=== PATIENT | male | born 1995 | race Caucasian/White ===

== ENCOUNTER 2019-02-07 16:08 | Emergency (ER) | payer SELFPAY | END 2019-02-07 17:15 | disposition left against medical advice (07) | LOC: ED 16:08 | DX: Z53.9 Procedure and treatment not carried out, unspecified reason (principal) ==

== ENCOUNTER 2019-03-08 13:28 | Emergency (ER) | payer SELFPAY ==
--- NOTE | 2019-03-08 14:58 | ERPHSYRPT ---
- History of Present Illness Time Seen by Provider: 03/08/19 14:48 Source: patient Exam Limitations: no limitations Patient Subjective Stated Complaint: pt reports sore throat x 3 days. reports pain with swallowing. states he has intermittent fever as well. pt reports aching to the joints. Triage Nursing Assessment: pt aox3, pupils perrl, low grade fever of 100.8, resps easy and non labored, cap refill < 3 seconds, pt skin pink warm dry. redness, exudate noted to bilat throat. Physician History: This is a 23-year-old white male with history of asthma arrives with complaint of a sore throat for 3 days she states she's also been having pain with swallowing and a cough. Past medical history includes asthma. Past surgical history is negative. Social history positive tobacco positive marijuana. . Timing/Duration: day(s) Severity: moderate (3 days) Modifying Factors: Improves With: nothing Associated Symptoms: cough, fever, other (throat pain), No nausea, No vomiting, No abdominal pain, No shortness of breath, No heartburn, No diaphoresis, No chills, No chest pain, No headaches, No loss of appetite, No malaise, No rash, No syncope, No seizure, No weakness Allergies/Adverse Reactions: No Known Drug Allergies Allergy (Unverified 03/08/19 14:08) Hx Tetanus, Diphtheria Vaccination/Date Given: No Hx Influenza Vaccination/Date Given: No Hx Pneumococcal Vaccination/Date Given: No Immunizations Up to Date: Yes - Review of Systems Constitutional: Fever, No Chills, No Fatigue, No Lethargy, No Malaise, No Night Sweats, No Weakness, No Weight Loss, No Other Eyes: No Symptoms Ears, Nose, & Throat: Throat Pain, No Ear Pain, No Ear Discharge, No Hearing Changes, No Tinnitus, No Nose Pain, No Nose Congestion, No Nose Discharge, No Sinus Drainage, No Epistaxis, No Mouth Pain, No Mouth Swelling, No Loose Teeth, No Throat Swelling, No Hoarse, No Painful Swallowing, No Snoring, No Stridor Respiratory: Cough, No Cyanosis, No Dyspnea, No Dyspnea on Exertion (JOLLY), No Stridor, No Wheezing Cardiac: No Chest Pain, No Edema, No Syncope Abdominal/Gastrointestinal: No Abdominal Pain, No Nausea, No Vomiting, No Diarrhea Genitourinary Symptoms: No Dysuria Musculoskeletal: No Back Pain, No Neck Pain Skin: No Rash Neurological: No Dizziness, No Focal Weakness, No Sensory Changes Psychological: No Symptoms Endocrine: No Symptoms All Other Systems: Reviewed and Negative - Past Medical History Pertinent Past Medical History: Yes Respiratory History: Asthma - Past Surgical History Past Surgical History: No - Social History Smoking Status: Current every day smoker Drug Use: marijuana Patient Lives Alone: No - Nursing Vital Signs Nursing Vital Signs: Initial Vital Signs Temperature 100.8 F 03/08/19 13:58 Pulse Rate 95 H 03/08/19 13:58 Respiratory Rate 20 03/08/19 13:58 Blood Pressure 128/73 03/08/19 13:58 O2 Sat by Pulse Oximetry 99 03/08/19 13:58 Pain Scale Pain Intensity 8 - Physical Exam General Appearance: mild distress, alert Eye Exam: PERRL/EOMI, eyes nml inspection Ears, Nose, Throat Exam: TMs normal, moist mucous membranes, pharyngeal erythema , No pharynx normal (throat erythematous), No dry mucous membranes, No TM abnormal (R), No TM abnormal (L) Neck Exam: normal inspection, non-tender, supple, full range of motion Respiratory Exam: airway intact, wheezing (few rare wheezes) Cardiovascular Exam: regular rate/rhythm, normal heart sounds, normal peripheral pulses, capillary refill <2 sec Gastrointestinal/Abdomen Exam: soft, normal bowel sounds, No tenderness, No mass Back Exam: normal inspection, normal range of motion, No CVA tenderness, No vertebral tenderness Extremity Exam: normal inspection, normal range of motion, pelvis stable Neurologic Exam: alert, oriented x 3, cooperative, grant writer II-XII nml as tested, normal mood/affect, nml cerebellar function, nml station & gait, sensation nml, No motor deficits Skin Exam: normal color Lymphatic Exam: No adenopathy SpO2 Interpretation: normal (99%) SpO2: 99 Lab/Rad Data: Laboratory Results 03/08/19 Range/Units 14:17 Group A Strep Antibody NEGATIVE (NEGATIVE) - Progress Progress: improved Progress Note: 03/08/19 14:56 23-year-old white male arrives with complaint of sore throat for 3 days he states he is having pain with swallowing. Patient does have a few scattered rare wheezes. He does have a history of asthma. Patient does smoke. Because of the patient's cough history of asthma will go ahead and place patient on Zithromax despite his negative strep test will also write for [facility] for pain he denies any problems with substance abuse. - Departure Departure Disposition: Home Clinical Impression: Bronchitis Pharyngitis Qualifiers: Pharyngitis/tonsillitis etiology: unspecified etiology Qualified Code(s): J02.9 - Acute pharyngitis, unspecified Condition: Fair Critical Care Time: No Referrals: LUBNA COMBS MD [Primary Care Provider] - Instructions: Sore Throat, Adult (DC) Additional Instructions: Return home. Plenty of fluids. Zithromax as prescribed. Eolia as prescribed. Tylenol every 4 hours as needed for temperature greater than 100.5 do not double up Tylenol in E[place] with Tylenol. Advil every 6 hours as needed for temperature greater than 100.5. Followup with your family Dr. symptoms are worse, no better in 48 hours, or persist longer than one week. Return for acute distress or for severe symptoms. Stop smoking. Prescriptions: Hydrocodone/APAP 5-325 Tab^^^ [Eolia 5-325 Tablet^^^] 1 tab PO Q6HPRN PRN #10 tablet MDD 6 PRN Reason: throat pain Azithromycin 250 mg [Zithromax 250 MG TABLET] 0 mg PO ZPACK #6 tablet
[2019-03-08] MEDS ORDERED: MOTRIN 600 MG PO ONE (14:59)
[2019-03-08] MEDS ORDERED: MOTRIN 600 MG ONE (15:02)
[2019-03-08 15:10] VITALS: BP 114/72; PULSE 70; O2SAT 98
== END 2019-03-08 15:10 | disposition home or self-care (01) ==
LOC: ED 13:28
DX: J40 Bronchitis, not specified as acute or chronic (principal); J02.9 Acute pharyngitis, unspecified
CPT/HCPCS: 87651; 99283; A9270-GY

== ENCOUNTER 2019-04-23 22:09 | Emergency (ER) | payer SELFPAY ==
[2019-04-23 22:47] VITALS: O2SAT 98
[2019-04-23] MEDS ORDERED: Vancomycin 1GM/ Ns 250ML*** 250 ML IV ONE ×2 (23:03→23:18)
--- NOTE | 2019-04-23 23:08 | ERPHSYRPT ---
- History of Present Illness Time Seen by Provider: 04/23/19 22:59 Source: patient Exam Limitations: no limitations Patient Subjective Stated Complaint: pt is alert and oriented. pt is ambulatory with a steady gait. pt comes in with c/o "bug bite" to his left wrist. pt has a swollen, red, and hot to touch area to his left wrist. pt has redness to his anterior wrist and the posterior of his hand. pt states that he was at the ER yesterday and recieved a prescription for Keflex but that he has not picked it up yet. pt states that he did have one dose at the ER. pt states that he has increased redness today and increased warmth. radial pulse strong. no sensation loss. no drainage noted. Triage Nursing Assessment: see above Physician History: 23-year-old white male arrives with complaint of raised area in his right wrist which is erythematous. Symptoms for several days he was seen yesterday at [facility] given an injection of antibiotics and given a prescription for Keflex. He states he did not fill his Keflex he feels like his area on his wrist is worse. Past medical history includes asthma Past surgical history negative Occurred: days ago (2-3 days ago) Method of Injury: other (possible insect bite) Quality: constant Severity of Pain-Max: mild Severity of Pain-Current: mild Extremities Pain Location: wrist: right Modifying Factors: Improves With: nothing Associated Symptoms: other (erythema and raised area right anterior wrist radial aspect) Allergies/Adverse Reactions: No Known Drug Allergies Allergy (Unverified 03/08/19 14:08) Hx Tetanus, Diphtheria Vaccination/Date Given: No Hx Influenza Vaccination/Date Given: No Hx Pneumococcal Vaccination/Date Given: No Immunizations Up to Date: Yes - Review of Systems Constitutional: No Fever, No Chills Eyes: No Symptoms Ears, Nose, & Throat: No Symptoms Respiratory: No Cough, No Dyspnea Cardiac: No Chest Pain, No Edema, No Syncope Abdominal/Gastrointestinal: No Abdominal Pain, No Nausea, No Vomiting, No Diarrhea Genitourinary Symptoms: No Dysuria Musculoskeletal: Other (Raised erythematous area right anterior wrist radial aspect) Skin: Cellulitis (raised erythematous area right anterior wrist radial aspect) Neurological: No Dizziness, No Focal Weakness, No Sensory Changes Psychological: No Symptoms Endocrine: No Symptoms All Other Systems: Reviewed and Negative - Past Medical History Pertinent Past Medical History: Yes Neurological History: No Pertinent History ENT History: No Pertinent History Cardiac History: No Pertinent History Respiratory History: Asthma Endocrine Medical History: No Pertinent History Musculoskeletal History: No Pertinent History GI Medical History: No Pertinent History History: No Pertinent History Psycho-Social History: No Pertinent History Male Reproductive Disorders: No Pertinent History - Past Surgical History Past Surgical History: No - Social History Smoking Status: Current every day smoker How long have you smoked: 10 years Drug Use: marijuana Patient Lives Alone: No - Nursing Vital Signs Nursing Vital Signs: Initial Vital Signs Temperature 98.6 F 04/23/19 22:38 Pulse Rate 82 04/23/19 22:38 Respiratory Rate 18 04/23/19 22:38 Blood Pressure 123/58 04/23/19 22:38 O2 Sat by Pulse Oximetry 98 04/23/19 22:38 Pain Scale Pain Intensity 8 - Physical Exam General Appearance: alert Eyes, Ears, Nose, Throat Exam: moist mucous membranes Neck Exam: non-tender, supple Cardiovascular/Respiratory Exam: chest non-tender, normal breath sounds, regular rate/rhythm, no respiratory distress Abdominal Exam: non-tender, No guarding Back Exam: normal inspection, No vertebral tenderness Shoulder Exam: normal inspection, non-tender, no evidence of injury, normal ROM Elbow/Forearm Exam: normal inspection, non-tender, no evidence of injury, normal ROM Wrist Exam: normal ROM, No normal inspection (right anterior wrist with raised erythematous area with surrounding 8 cm erythema somewhat warm to touch) Neuro/Tendon Exam: normal sensation, normal motor functions Mental Status Exam: alert, oriented x 3, cooperative Skin Exam: warm, dry, other (right anterior wrist radial aspect with raised erythematous area with 8 cm surrounding erythema) SpO2 Interpretation: normal (98%) SpO2: 98 - Course Nursing assessment & vital signs reviewed: Yes Ordered Tests: Active Orders 24 hr Category Date Time Status BLOOD CULTURE Stat Lab 04/23/19 23:37 Received CBC W DIFF Stat Lab 04/23/19 23:37 Completed Medication Summary Generic Name Dose Route Start Last Admin Trade Name Freq PRN Reason Stop Dose Admin Vancomycin HCl 250 mls @ 167 mls/hr 04/23/19 23:03 04/23/19 23:22 Vancomycin 1gm/ Ns 250ml IV 04/24/19 00:32 167 mls/hr STAT ONE Administration Discontinued Medications Generic Name Dose Route Start Last Admin Trade Name Swathi PRN Reason Stop Dose Admin Vancomycin HCl Confirm 04/23/19 23:18 Vancomycin 1gm/ Ns 250ml Administered 04/23/19 23:19 Dose 250 mls @ ud IV .STK-MED ONE Lab/Rad Data: Laboratory Result Diagrams 04/23/19 23:37 Laboratory Results 04/23/19 Range/Units 23:37 WBC 12.4 H (4.0-10.5) K/mm3 RBC 4.55 (4.1-5.6) M/mm3 Hgb 13.7 (12.5-18.0) gm/dl Hct 41.6 L (42-50) % MCV 91.4 (78-100) fl MCH 30.1 (26-32) pg MCHC 32.9 (32-36) g/dl RDW 14.2 H (11.5-14.0) % Plt Count 241 (150-450) K/mm3 MPV 11.1 H (6-9.5) fl Gran % 69.6 H (36.0-66.0) % Eos # (Auto) 0.22 (0-0.5) Absolute Lymphs (auto) 2.57 (1.0-4.6) Absolute Monos (auto) 0.93 (0.0-1.3) Lymphocytes % 20.8 L (24.0-44.0) % Monocytes % 7.5 (0.0-12.0) % Eosinophils % 1.8 (0.00-5.0) % Basophils % 0.3 (0.0-0.4) % Absolute Granulocytes 8.59 H (1.4-6.9) Basophils # 0.04 (0-0.4) - Progress Progress: improved Progress Note: 04/23/19 23:07 23-year-old white male who was seen yesterday at [facility] secondary to possible insect bite to his right wrist. Patient was apparently given an injection of antibiotics sent home with a prescription of Keflex which he did not feel. He has a raised erythematous area to the right anterior wrist radial aspect which is warm to the touch it h this as 8 cm of surrounding erythema. Will go ahead and obtain CBC blood culture. Will give patient 1 g of vancomycin IV. - Departure Departure Disposition: Home Clinical Impression: Cellulitis of left wrist Insect bite of left wrist Qualifiers: Encounter type: initial encounter Qualified Code(s): S60.862A - Insect bite ( nonvenomous) of left wrist, initial encounter; W57.XXXA - Bitten or stung by nonvenomous insect and other nonvenomous arthropods, initial encounter Condition: Fair Critical Care Time: No Referrals: LUBNA COMBS MD [Primary Care Provider] - Additional Instructions: Return home. Fill your prescription of Keflex which he previously she received and take as directed. Followup with your family DrErrol. Return for acute distress or for severe symptoms.
[2019-04-23 23:41] LABS: BASOPHIL % 0.3 % (0.0-0.4); Basophil (Absolute #) 0.04 (0-0.4); Eosinophil % 1.8 % (0.00-5.0); Eosinophil (Absolute #) 0.22 (0-0.5); Granulocyte Absolute (ANC) 8.59 (1.4-6.9); Granulocytes % 69.6 % (36.0-66.0); Hematocrit 41.6 % (42-50); Hemoglobin 13.7 gm/dl (12.5-18.0); Lymphocyte (Absolute #) 2.57 (1.0-4.6); Lymphocytes % 20.8 % (24.0-44.0); Mean Cell Volume 91.4 fl (78-100); Mean Corpuscular Hemoglobin 30.1 pg (26-32); Mean Corpuscular Hgb Concent. 32.9 g/dl (32-36); Mean Platelet Volume 11.1 fl (6-9.5); Monocyte (Absolute #) 0.93 (0.0-1.3); Monocytes % 7.5 % (0.0-12.0); Platelet Count 241 K/mm3 (150-450); Red Blood Count 4.55 M/mm3 (4.1-5.6); Red Cell Distribution Width 14.2 % (11.5-14.0); White Blood Count 12.4 K/mm3 (4.0-10.5)
[2019-04-23 23:56] VITALS: PULSE 87
[2019-04-24 01:06] VITALS: BP 117/70
== END 2019-04-24 01:22 | disposition home or self-care (01) ==
LOC: ED 22:09
DX: S60.862A Insect bite (nonvenomous) of left wrist, initial encounter (principal)
CPT/HCPCS: 36415; 85025; 87040; 96365; 99284; J3370